=== PATIENT | female | born 1960 | race Caucasian/White ===

== ENCOUNTER 2017-11-22 05:50 | Day surgery (SDC) | payer OTHER ==
[~2017-11-22] VITALS: Ht 157.5 cm; Wt 68.0 kg
[~2017-11-22 05:50] MED LIST: CEFAZOLIN 1 GM IVPB PREMIX 50 ML IV ONE
[2017-11-22] MEDS ORDERED: CEFAZOLIN SOD 1 GM/ ISO 50 ML PREMIX IV ONE (07:00)
[2017-11-22] MEDS ORDERED: POLYMYXIN 500,000/BACIT.10,000 UNITS in NS IRR 1 L IR ONE (07:37)
[2017-11-22] MEDS ORDERED: fentaNYL CITRATE/PF 100 MCG/2 ML AMP IVP PRN ×2 (08:30)
[2017-11-22] MEDS ORDERED: ONDANSETRON HCL 4 MG/2 ML VIAL IVP PRN (08:30)
[2017-11-22] MEDS ORDERED: BUPIVACAINE /PF 0.5% 30 ML VIAL ONE (09:00)
[2017-11-22] MEDS ORDERED: PROPOFOL 200MG/ 20ML VIAL (DIPRIVAN) IV ONE (09:00)
[2017-11-22] MEDS ORDERED: OXYCODONE/ACETAMINOPHEN 5-325 TABLET PO PRN ×2 (09:00)
[2017-11-22] MEDS ORDERED: LR 1,000 ML IV.SOLN IV ONE (09:00)
[2017-11-22] MEDS ORDERED: SEVOFLURANE 15 MIN GAS INH ONE (09:00)
[2017-11-22] MEDS ORDERED: fentaNYL CITRATE/PF 100 MCG/2 ML AMP ONE ×2 (09:00→09:33)
[2017-11-22] MEDS ORDERED: MIDAZOLAM HCL 5 MG/ML VIAL (VERSED) IV ONE (09:00)
[2017-11-22] MEDS ORDERED: NS 1000 ML IV.SOLN IV ONE (09:00)
[2017-11-22] MEDS ORDERED: HYDROcodone/ACETAMIN 5-325 MG TAB (NORCO/ VICODIN) PO PRN (09:00)
[2017-11-22] MEDS ORDERED: DEXTROSE 50% JECT 50 ML DISP.SYRIN ONE (09:00)
[2017-11-22] MEDS ORDERED: EPINEPHrine 1 MG/ML AMP ONE (09:00)
[2017-11-22 11:14] VITALS: BP_SYST 119
[2017-11-22] MEDS ORDERED: KETOROLAC TROMETHAMINE 30 MG VIAL ONE (11:36)
[2017-11-22] MEDS ORDERED: KETOROLAC TROMETHAMINE 30 MG VIAL IM ONE (12:00)
[2017-11-22] MEDS ORDERED: CEFAZOLIN 1 GM IVPB PREMIX 50 ML IV ONE (13:00)
== END 2017-11-22 13:40 | disposition home or self-care (01) ==
LOC: SDS 05:50 → SMU 05:50 → SDS 13:40
PROVIDERS: ATTEND Specialist
DX: N39.3 Stress incontinence (female) (male) (principal); N81.10 Cystocele, unspecified; R94.31 Abnormal electrocardiogram [ECG] [EKG]
CPT/HCPCS: 57240; 57288; 88305; 93005; C1771; J0171; J0690; J1885; J2250; J2704; J3010; J3490; J7030; J7120